=== PATIENT | female | born 1935 | race Caucasian/White ===

== ENCOUNTER 2020-05-29 10:42 | Outpatient (CLI) | payer MEDICARE, MEDICAID | END 2020-05-29 19:56 | disposition home or self-care (01) | LOC: SCT 10:42 | PROVIDERS: ATTEND Family Medicine | DX: J92.9 Pleural plaque without asbestos (principal); R91.8 Other nonspecific abnormal finding of lung field; J90 Pleural effusion, not elsewhere classified; Z86.11 Personal history of tuberculosis | CPT/HCPCS: 71250-TC ==